=== PATIENT | female | born 1975 | race Caucasian/White ===

== ENCOUNTER → 2016-05-19 | Outpatient (CLI) | payer OTHER ==
[2016-05-19 10:34] LABS: CH 30.9; CHCM 33.8; HCT 44.6 % (34.0-46.0); HDW 2.83; HGB 14.5 gm/dL (11.4-16.0); MCH 29.9 pg (25.0-35.0); MCHC 32.6 g/dL (31.0-37.0); MCV 91.8 fL (80.0-100.0); Mean Platelet Volume 6.4; RBC 4.86 m/uL (3.80-5.40); WBC 9.4 k/uL (3.8-10.6)
[2016-05-19 10:57] LABS: ALT 43 U/L (9-52); AST 22 U/L (14-36); Alkaline Phosphatase 82 U/L (38-126); Anion Gap 12 mmol/L; Blood Urea Nitrogen 15 mg/dL (7-17); Carbon Dioxide 22 mmol/L (22-30); Chloride 110 mmol/L (98-107); Cholesterol 241 mg/dL (<200); Glucose 93 mg/dL (74-99); HDL Cholesterol 56 mg/dL (40-60); Non-African American GFR(MDRD) >60 (>60 ml/min/1.73 sqM); Sodium 144 mmol/L (137-145); Total Bilirubin 0.5 mg/dL (0.2-1.3); Total Protein 7.3 g/dL (6.3-8.2); Triglycerides 210 mg/dL (<150)
[2016-05-19 11:40] LABS: Hemoglobin A1C 5.4 % (4.2-6.1)
== END | disposition home or self-care (01) ==
LOC: LABWHC1 10:11
PROVIDERS: ATTEND Internal Medicine
DX: G40.909 Epilepsy, unspecified, not intractable, without status epilepticus (principal); E78.2 Mixed hyperlipidemia; E66.1 Drug-induced obesity; G47.30 Sleep apnea, unspecified; R73.9 Hyperglycemia, unspecified
CPT/HCPCS: 36415; 80053; 80061; 83036; 84439; 84443; 85027

== ENCOUNTER → 2016-06-11 | Outpatient (CLI) | payer OTHER ==
[2016-06-12 07:25] LABS: Levetiracetam (Keppra) 28.6 ug/mL (3.0-60.0)
== END | disposition home or self-care (01) ==
LOC: LABWHC1 09:43
PROVIDERS: ATTEND Psychiatry & Neurology Neurology
DX: G40.209 Localization-related (focal) (partial) symptomatic epilepsy and epileptic syndromes with complex partial seizures, not intractable, without status epilepticus (principal)
CPT/HCPCS: 36415; 80177; 80203

== ENCOUNTER → 2016-06-23 | Outpatient (CLI) | payer OTHER ==
--- NOTE | 2016-06-23 21:42 | WWHP ---
CHIEF COMPLAINT: Patient is here for her routine gynecologic exam and mammogram. HPI: This is a 40-year-old, G2, P2 with an LMP of 05/26/2016. She is status post tubal ligation. The patient is without gynecologic complaints. Her periods are regular every month. 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 PAST MEDICAL HISTORY: Epilepsy since , history of borderline personality disorder and depression as well as elevated cholesterol and seasonal allergies. Dr. Herrera is her primary care physician. MEDICATIONS: 1. Keppra 500 mg 3 tabs b.i.d. and 250 mg at bedtime. 2. Zonegran 100 mg 2 capsules in the morning and 3 capsules in the evening. 3. Zoloft 100 mg 1-1/2 tablets daily. 4. Lipitor 20 mg daily. 5. Folic acid 1 mg b.i.d. 6. Vimpat 50 mg 1 at bedtime. 7. Singulair 10 mg at bedtime. ALLERGIES: No known drug allergies. PAST SURGICAL HISTORY: section x2 and she did have a tubal ligation with her second one. These were in 2010 and 2012. Also ankle surgery in 1997 and orbital bone surgery in 2007. PAST [employer] HISTORY: She has no history of STDs. Menses are regular every month. SOCIAL HISTORY: She quit smoking in 05/2016. She denies alcohol and drug use. She has been since 2010. This is her second marriage. 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 FAMILY HISTORY: She is adopted. She thinks a great-grandmother may have had breast cancer, but she is uncertain of this. REVIEW OF SYSTEMS: She has lost about 10 pounds over the past 2 months with diet and exercise. She denies respiratory, cardiac or GI problems. PHYSICAL EXAM: Blood pressure 132/82. Height 5 feet 5 inches. Weight 254 pounds. Temperature 99.5, pulse 77. This is a well-developed, heavyset white female who is alert and oriented x3, in no acute distress. HEENT is within normal limits. NECK: Supple without mass or thyromegaly. CHEST AND LUNGS: Clear to auscultation. HEART: Regular rate and rhythm. Breasts are without mass or discharge. Axillary is negative for adenopathy. BACK: Negative for CVA tenderness. ABDOMEN: Obese, soft, nontender, without palpable masses. PELVIC: Normal external genitalia. Cervix and vagina appear normal. There is no unusual discharge. No evidence of prolapse. The uterus is midposition, nongravid size and nontender. There are no palpable adnexal masses or tenderness. Bimanual is somewhat limited secondary to her size. Rectal is negative for mass or tenderness. EXTREMITIES: Nontender. IMPRESSION: A 40-year-old female with normal gynecologic exam who is status post tubal ligation. PLAN: 1. Pap smear was performed. 2. Self-breast examination was discussed. 3. Mammogram will be done today and she states Dr. Herrera had recommended that she have a mammogram done. 4. She will return in 1 year.
--- NOTE | 2016-06-25 13:23 | MM ---
Reason for exam: screening (asymptomatic). Last mammogram was performed 1 year and 11 months ago. History: Patient had first child at age 34. Physical Findings: A clinical breast exam by your physician is recommended on an annual basis and results should be correlated with mammographic findings. MG Screening Mammo w CAD Bilateral CC and MLO view(s) were taken. Prior study comparison: July 24, 2014, mammogram, performed at [facility]. April 14, 2013, mammogram, performed at [facility]. The breast tissue is heterogeneously dense. This may lower the sensitivity of mammography. Finding: There are small equal density (isodense), indistinct irregular masses in the middle position of both breasts, inner left CC view and inferior right MLO view, 6cm from the left nipple and 7cm from the right nipple. Asymmetries. New finding since July 24, 2014 and April 14, 2013. ASSESSMENT: Incomplete: need additional imaging evaluation, BI-RAD 0 RECOMMENDATION: Special view mammogram of both breasts. If lesion persists on supplemental views, image directed ultrasound is recommended. [facility] will attempt to contact patient to return for supplemental views and ultrasound if indicated.
--- NOTE | 2016-07-07 10:36 | WWPLE ---
July 07, 2016 NILSON BARAHONA MD RE: Jayda Reyes Dear Dr. Barahona: I had the pleasure of seeing your patient Jayda Reyes in the office on 06/23/2016. As you know she is a 40-year-old female who presented to me for her routine gynecologic exam. Her gynecologic exam was unremarkable. Her Pap smear was mildly abnormal and showed ASCUS. Reflex high risk HPV testing was done, and this was negative. With this combination of results, no treatment is necessary at this time, but I have recommended that she repeat her Pap smear in one year. Her mammogram did require an additional right-sided ultrasound, which was benign. We will plan on repeating screening mammograms in one year. Thank you for allowing me to participate in the care of your patient. Please do not hesitate to call if you have any questions. Sincerely, SOMMER HOLDER MD [facility]. [facility] CENTERJake
== END | disposition home or self-care (01) ==
LOC: WWCWWP 10:36
PROVIDERS: ATTEND Obstetrics & Gynecology
DX: Z12.31 Encounter for screening mammogram for malignant neoplasm of breast (principal); R92.8 Other abnormal and inconclusive findings on diagnostic imaging of breast

== ENCOUNTER → 2016-06-30 | Outpatient (CLI) | payer OTHER ==
--- NOTE | 2016-06-30 11:11 | MM ---
Reason for exam: additional evaluation requested from abnormal screening. Last mammogram was performed less than 1 month ago. History: Patient had first child at age 34. Physical Findings: Nurse did not find any significant physical abnormalities on exam. MG Work Up Mamm w CAD BILAT Bilateral LM and spot compression CC view(s) were taken. Prior study comparison: June 23, 2016, bilateral MG screening mammo w CAD. July 24, 2014, mammogram, performed at [facility]. 3 o'clock density right breast persists for which an ultrasound is recommended. No persistent abnormality on the left breast. These results were verbally communicated with the patient and result sheet given to the patient on 06/30/16. ASSESSMENT: Incomplete: need additional imaging evaluation, BI-RAD 0 Benign, BI-RAD 2 finding in the left breast. Incomplete: need additional imaging evaluation, BI-RAD 0 of the right breast. RECOMMENDATION: Ultrasound of the right breast.
--- NOTE | 2016-06-30 11:12 | USB ---
Reason for exam: additional evaluation requested from abnormal screening. History: Patient had first child at age 34. US Breast Workup Limited RT Right breast ultrasound demonstrates ducts at 2 o'clock 1 cm from nipple. These results were verbally communicated with the patient and result sheet given to the patient on 06/30/16. ASSESSMENT: Benign, BI-RAD 2 RECOMMENDATION: Return to routine screening mammogram schedule for both breasts.
== END | disposition home or self-care (01) ==
LOC: RADMAMWWP 09:37
PROVIDERS: ATTEND Obstetrics & Gynecology
DX: R92.8 Other abnormal and inconclusive findings on diagnostic imaging of breast (principal)
CPT/HCPCS: 76642; G0204

== ENCOUNTER 2016-07-05 03:50 | Emergency (ER) | payer OTHER ==
[2016-07-05 03:56] VITALS: BP 140/87; PULSE 80; RESP 18; TEMP 98.7
[2016-07-05] MEDS ORDERED: AMOXIC-POT CLAV 875-125MG 1 EACH TAB PO STA (04:04)
[2016-07-05] MEDS ORDERED: NEOMYCIN-POLYMYXIN-HC (3.5-10,000-10 MG) OTIC DROPS 10 ML BTL LEFT EAR STA (04:04)
[2016-07-05] MEDS ORDERED: AMOXIC-POT CLAV 875MG STARTER 2 EACH TABLET PO STA (04:04)
[2016-07-05] MEDS ORDERED: ACET/COD 300 MG/30 MG STARTER PACK 6 TAB BTL PO STA (04:08)
--- NOTE | 2016-07-05 04:08 | ED ---
General Adult HPI - General Chief complaint: ENT Stated complaint: earache Time Seen by Provider: 07/05/16 04:00 Source: patient, RN notes reviewed Mode of arrival: ambulatory Limitations: no limitations - History of Present Illness Initial comments: This is a 40-year-old female presents emergency Department with a one-day history of left ear ache. Patient states it hurts just to touch the inside of her ear. Patient denies any ear drainage. Patient denies any hearing problem. Patient denies any fever or chills. Patient states it's the ear canal that hurts not the inside of the ear. Patient denies any thinks similar to this. Patient denies being in any hot tubs or swimming post lately. - Related Data Home Medications Medication Instructions Recorded Confirmed Folic Acid 1 mg PO BID 10/08/13 07/05/16 Sertraline HCl [Zoloft] 100 mg PO DAILY 10/08/13 07/05/16 Zonisamide [Zonegran] 200 mg PO DAILY 10/08/13 07/05/16 levETIRAcetam [Keppra] 1,500 mg PO Q12HR 10/08/13 07/05/16 Zonisamide [Zonegran] 300 mg PO HS 08/11/14 07/05/16 levETIRAcetam [Keppra] 1 tab PO HS 08/11/14 07/05/16 Atorvastatin [Lipitor] 20 mg PO HS 07/05/16 07/05/16 Lacosamide [Vimpat] 50 mg PO 07/05/16 Previous Rx's Medication Instructions Recorded Loratadine [Alavert] 10 mg PO DAILY #24 tab 12/11/15 Amoxicillin/Potassium Clav 1 each PO Q12HR #28 tab 07/05/16 [Augmentin 875-125 Tablet] Ibuprofen [Motrin] 600 mg PO Q6HR PRN #20 tab 07/05/16 Allergies Allergy/AdvReac Type Severity Reaction Status Date / Time No Known Allergies Allergy Verified 03/03/15 18:07 Review of Systems ROS Statement: Those systems with pertinent positive or pertinent negative responses have been documented in the HPI. ROS Other: All systems not noted in ROS Statement are negative. Past Medical History Past Medical History: Diabetes Mellitus, Seizure Disorder Additional Past Medical History / Comment(s): seizures, borderline personality disorder History of Any Multi-Drug Resistant Organisms: None Reported Past Surgical History: Section Additional Past Surgical History / Comment(s): left ankle, right orbital fracture, Past Psychological History: Anxiety Smoking Status: Former smoker Past Alcohol Use History: None Reported Past Drug Use History: None Reported General Exam - General Exam Comments Initial Comments: GENERAL Patient is well-developed and well-nourished. Patient is in mild distress. EYES Patient's pupils are equal and round. Extraocular motion is intact ENT Patient's left ear canal is swollen and could represent an early abscess. SKIN Unremarkable NEURO The patient is alert and oriented 3 PYSCH Patient has normal interpersonal interactions. MUSCULOSKELETAL All Fortress have full range of motion Limitations: no limitations Course Vital Signs 07/05/16 03:53 Temperature 98.7 F Pulse Rate 80 Respiratory 18 Rate Blood Pressure 140/87 O2 Sat by Pulse 97 Oximetry Disposition Clinical Impression: Abscess of left ear canal Disposition: HOME SELF-CARE Instructions: Abscess (ED) Additional Instructions: Patient should follow-up with Dr. Herrera as soon as possible. Patient should use Cortisporin drops 4 times a day. Patient's take Augmentin as prescribed. Patient should take Motrin every 6 hours patient should take Tylenol with codeine when necessary for pain Prescriptions: Amoxicillin/Potassium Clav [Augmentin 875-125 Tablet] 1 each PO Q12HR #28 tab Ibuprofen [Motrin] 600 mg PO Q6HR PRN #20 tab PRN Reason: For pain Referrals: Jay Herrera MD [Primary Care Provider] - 1-2 days Time of Disposition: 04:08
== END 2016-07-05 04:23 | disposition home or self-care (01) ==
LOC: EC 03:50
DX: H66.42 Suppurative otitis media, unspecified, left ear (principal); G40.909 Epilepsy, unspecified, not intractable, without status epilepticus; F41.9 Anxiety disorder, unspecified; Z87.891 Personal history of nicotine dependence; Z79.899 Other long term (current) drug therapy
CPT/HCPCS: 99282